=== PATIENT | female | born 1955 | race Caucasian/White ===

== ENCOUNTER 2016-12-10 19:55 | Emergency (ER) | payer BC, OTHER ==
[~2016-12-10] VITALS: Ht 152.4 cm; Wt 97.1 kg
[~2016-12-10 19:55] MED LIST: depression med
[2016-12-10 20:09] VITALS: BP 142/80
[2016-12-10] MEDS ORDERED: CYCL10TA2 PO (21:57)
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
--- NOTE | 2016-12-11 09:14 | RAD ---
Examination: 3 views of the cervical spine History: History of pain Comparison: None available. Findings: The vertebral body heights are maintained. There is mild to moderate intervertebral disc height loss identified at C5-C6, C6-C7 vertebral levels. The facets are well aligned. No evidence of prevertebral soft tissue swelling identified. The lateral masses of C1 are aligned with C2 vertebra. The C2 dens appears intact. Impression: 1. Mild to moderate degenerative changes cervical spine.
== END 2016-12-10 22:05 | disposition home or self-care (01) ==
LOC: ER 19:55
DX: S13.4XXA Sprain of ligaments of cervical spine, initial encounter (principal); I10 Essential (primary) hypertension; F41.9 Anxiety disorder, unspecified; V46.4XXA Person boarding or alighting a car injured in collision with other nonmotor vehicle, initial encounter; Y93.89 Activity, other specified; Y99.8 Other external cause status; Y92.488 Other paved roadways as the place of occurrence of the external cause
CPT/HCPCS: 72040; 99284

== ENCOUNTER → 2017-02-17 | Outpatient (CLI) | payer OTHER, BC ==
[~2017-02-17] MED LIST changes: +CYCL10TA2 PO
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
== END ==
LOC: MRI 15:32
PROVIDERS: ATTEND Family Medicine
DX: M50.322 Other cervical disc degeneration at C5-C6 level (principal); M48.02 Spinal stenosis, cervical region
CPT/HCPCS: 72141

== ENCOUNTER → 2017-04-12 | Outpatient (CLI) | payer OTHER, BC ==
[~2017-04-12] MED LIST changes: +CITA40TA5 PO; +CLON0.5T3 PO; +IOHEXOL 180 MG/ML 10 ML VIAL. ONE; +LISI-338 PO; +methylPREDNISolone ACETATE 40 MG/ML VIAL. ONE; +methylPREDNISolone ACETATE 80 MG/ML VIAL. ONE
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
== END | disposition home or self-care (01) ==
LOC: PNCL 07:43
PROVIDERS: ATTEND Anesthesiology
DX: M50.123 Cervical disc disorder at C6-C7 level with radiculopathy (principal); M48.02 Spinal stenosis, cervical region; M19.91 Primary osteoarthritis, unspecified site; F32.9 Major depressive disorder, single episode, unspecified; I10 Essential (primary) hypertension; Z72.89 Other problems related to lifestyle
CPT/HCPCS: 62321; J1030; J1040

== ENCOUNTER → 2017-04-27 | Outpatient (CLI) | payer OTHER, BC ==
--- NOTE | 2017-04-27 22:52 | PAIN ---
DATE OF SERVICE: 04/27/2017 DIAGNOSIS: Cervical radiculopathy with cervical spinal stenosis and cervical degenerative disk disease. HISTORY OF PRESENT ILLNESS: The patient is a 61-year-old female who returns for followup status post cervical epidural steroid injection x 1. The patient reports about 70% improvement in her neck and right upper extremity, although still has some pain that radiating into right upper extremity and the base of the neck on the right side ____ improved significantly. She still has significant pain, aching, sharp, tingling, radiating; now is off and on, is not constant as it was previously. Rates a 9 on a scale of 10 at its worst, average 8 and is currently a 7 on a scale of 10, which is its least. The patient reports it awakens her from sleep still, but she sleeps about 6 hours a night. She can reposition gently and get back to sleep fairly quickly. The patient reports no new motor or sensory deficits. No new bowel or bladder incontinence or other complaints. PHYSICAL EXAMINATION: VITAL SIGNS: Today, the patient's blood pressure is 133/88, pulse 79, respirations 18, temperature is 98.4 degrees Fahrenheit. Height is 5 feet, weighs 212 pounds. GENERAL: The patient is awake, alert, oriented, appropriate, is a very pleasant demeanor. HEENT: Head shows normocephalic, atraumatic. Extraocular movements are intact and symmetrical. Oral cavity shows mucous membranes moist and pink. Dentition is intact. NECK: Shows anterior throat supple without palpable lymphadenopathy noted. Swallow reflex is symmetrical. CHEST: Shows normal on inspection. Breath sounds are clear to auscultation bilaterally. HEART: Shows S1 and S2 clear. ABDOMEN: Obese, soft, nontender, nondistended MUSCULOSKELETAL: Back shows spine grossly in the midline. Slight increase in the thoracic kyphosis, normal cervical lordotic curvature. Cervical paraspinous muscle shows symmetrical on inspection, with palpation shows some moderate tenderness, only diffusely in the low cervical distribution in the paraspinous musculature, right and left essentially equal. The patient's upper extremities show deep tendon reflexes at 2+ in the biceps and triceps tendons. Motor exam is positive 4 on a scale of 5 on the right towel stretcher and 5/5 on the left towel stretcher strength. Biceps and triceps flexion is 5/5 and equal. PLAN: Options were discussed with the patient and the patient's old chart was reviewed as her current medication regimen and updated. Current review of systems updated today as well. We will proceed with a cervical epidural steroid injection that is a second in the series. Risks were again discussed including, but not limited to bleeding, infection, possibility of epidural hematoma and subsequent neurologic compromise, dural puncture, headaches, spinal cord and/or nerve damage, side effects of steroid medication and poor results regarding pain control. The patient understands and wishes to proceed. The patient will return to clinic in approximately 2 weeks for followup, was counseled on return appointment, activity level and side effects to be aware of. DIAGNOSIS: Cervical radiculopathy with cervical spinal stenosis, cervical degenerative disk disease. PROCEDURE: Cervical epidural steroid injection, translaminar approach, at the C6-C7 level using C-arm fluoroscopic guidance after sterile prep and drape using local anesthetic. MEDICATIONS INJECTED: A total of 120 mg Depo-Medrol plus 5 mL preservative-free normal saline and 2 mL of Isovue for contrast. CONDITION AT DISCHARGE: Stable. The patient tolerated procedure well, had no complications. KOURTNEY WILD MD DR: MARCUS/jonathon JOB#: [id number] / [id number]
== END | disposition home or self-care (01) ==
LOC: PNCL 07:33
PROVIDERS: ATTEND Anesthesiology
DX: M50.123 Cervical disc disorder at C6-C7 level with radiculopathy (principal); M48.02 Spinal stenosis, cervical region; F32.9 Major depressive disorder, single episode, unspecified; Z98.890 Other specified postprocedural states
CPT/HCPCS: 62321; J1030; J1040

== ENCOUNTER → 2017-07-12 | Outpatient (CLI) | payer BC ==
[~2017-07-12] MED LIST changes: -IOHEXOL 180 MG/ML 10 ML VIAL. ONE; -methylPREDNISolone ACETATE 40 MG/ML VIAL. ONE; -methylPREDNISolone ACETATE 80 MG/ML VIAL. ONE
--- NOTE | 2017-07-12 15:07 | RAD ---
DATE: July 12, 2017 EXAM: DIGITAL SCREEN BILAT W/CAD HISTORY: Routine screening. COMPARISON: Multiple prior studies back to June 19, 2015 TECHNIQUE: 2D digital CC and MLO views of each breast were obtained. This study was interpreted with the benefit of Computerized Aided Detection (CAD). FINDINGS: The breast parenchyma is heterogeneously dense, category C, which may obscure small masses. There is no worrisome mass or area of architectural distortion. There are benign appearing calcifications bilaterally. Clip is noted on the right. Results of that biopsy are reported to be benign. IMPRESSION: Benign findings. BI-RADS CATEGORY: 2 BENIGN FINDING RECOMMENDED FOLLOW-UP: 12M 12 MONTH FOLLOW-UP PQRS compliance statement: Patient information was entered into a reminder system with a target due date for the next mammogram. Mammography is a sensitive method for finding small breast cancers, but it does not detect them all and is not a substitute for careful clinical examination. A negative mammogram does not negate a clinically suspicious finding and should not result in delay in biopsying a clinically suspicious abnormality. "Our facility is accredited by the [employer] Mammography Program."
== END | disposition home or self-care (01) ==
LOC: MAMMO 13:35
PROVIDERS: ATTEND Family Medicine
DX: Z12.31 Encounter for screening mammogram for malignant neoplasm of breast (principal)
CPT/HCPCS: G0202; 77067

== ENCOUNTER 2017-10-19 11:57 | Emergency (ER) | payer BC ==
[2017-10-19 12:36] LABS: ADD MAN DIFF? NO
[2017-10-19 12:42] LABS: BASO % 1 % (0-3); EOS # 0.3 x10^3/uL (0.0-0.7); EOS % 4 % (0-3); HEMOGLOBIN 13.4 g/dL (12.0-15.5); LYMPH # 2.6 x10^3/uL (1.0-4.8); LYMPH % 29 % (24-48); MEAN CORPUSCULAR HEMOGLOBIN 31 pg (25-35); MEAN CORPUSCULAR HGB CONC 34 g/dL (31-37); MEAN CORPUSCULAR VOLUME 91 fL (79-100); MONO # 0.5 x10^3/uL (0.0-1.1); MONO % 6 % (0-9); NEUT # 5.3 x10^3uL (1.8-7.7); NEUT % 60 % (31-73); PLATELET COUNT 290 x10^3/uL (140-400); RED BLOOD COUNT 4.39 x10^6/uL (3.50-5.40); RED CELL DISTRIBUTION WIDTH 13.3 % (11.5-14.5); WHITE BLOOD COUNT 8.8 x10^3/uL (4.0-11.0)
[2017-10-19 12:49] LABS: ANION GAP 9 (6-14); BLOOD UREA NITROGEN 16 mg/dL (7-20); BUN/CREATININE RATIO 23 (6-20); CALCIUM 8.9 mg/dL (8.5-10.1); CARBON DIOXIDE 27 mmol/L (21-32); CHLORIDE 106 mmol/L (98-107); CREATININE 0.7 mg/dL (0.6-1.0); GFR 85.1; GLUCOSE 110 mg/dL (70-99); SODIUM 142 mmol/L (136-145)
[2017-10-19 12:53] LABS: PARTIAL THROMBOPLASTIN TIME 31 SEC (24-38); PROTHROMBIN TIME PATIENT 12.5 SEC (11.7-14.0)
[2017-10-19 12:56] LABS: ALBUMIN 3.7 g/dL (3.4-5.0); ALK PHOS 96 U/L (46-116); ALT (SGPT) 32 U/L (14-59); AST (SGOT) 22 U/L (15-37); MAGNESIUM 1.7 mg/dL (1.8-2.4); TOTAL BILIRUBIN 0.3 mg/dL (0.2-1.0); TOTAL PROTEIN 7.3 g/dL (6.4-8.2)
[2017-10-19] MEDS: IV NORMAL SALINE 1000ML BAG 1,000 ML IV (12:56)
[2017-10-19] MEDS: diphenhydrAMINE 50 MG/ML VIAL IVP (12:57)
[2017-10-19] MEDS: PROCHLORPERAZINE 10 MG/2 ML VIAL. IV (12:58)
[2017-10-19] MEDS: fentaNYL PF VIAL 100 MCG/2 ML VIAL IV (13:02)
[2017-10-19] MEDS: KETOROLAC 30 MG/ML INJ. IV (14:33)
[2017-10-19 14:57] LABS: BILIRUBIN,URINE NEGATIVE (NEG); CLARITY,URINE CLEAR; COLOR,URINE YELLOW; GLUCOSE,URINE NEGATIVE (NEG); NITRITE,URINE NEGATIVE (NEG); PH,URINE 6.5; PROTEIN,URINE NEGATIVE (NEG-TRACE)
[2017-10-19 15:19] LABS: RBC,URINE RARE /HPF (0-2); SQUAMOUS EPITHELIAL CELL,UR FEW /LPF
[2017-10-19 15:20] LABS: BACTERIA,URINE FEW /HPF (0-FEW)
== END 2017-10-19 16:10 | disposition home or self-care (01) ==
LOC: ER 16:10
DX: M54.12 Radiculopathy, cervical region (principal); M62.838 Other muscle spasm; R51 Headache; F41.9 Anxiety disorder, unspecified; I10 Essential (primary) hypertension
CPT/HCPCS: 36415; 70450; 72125; 80053; 81001; 83735; 85025; 85610; 85730; 87086; 96361; 96374; 96375; 99285-25; J0780; J1200; J1885; J3010; J7030

== ENCOUNTER → 2018-04-04 | Outpatient (CLI) | payer BC ==
[2017-10-19 15:30] VITALS: BP 140/70
[~2018-04-04] MED LIST changes: +CLON0.5T11 PO; -CLON0.5T3 PO; +METH4TAB2 PO
--- NOTE | 2018-04-04 16:01 | RAD ---
Five view lumbar spine series: Clinical indications: Low back pain for 3 days. Left-sided sciatica. Findings: No fracture of the transverse processes is seen.No compression fracture is evident.No spondylolisthesis is seen.No discitis or osteolytic process is seen.No radiolucent pars defect is seen.No significant facet arthropathy is seen. There is mild degenerative endplate spurring throughout the lumbar spine without disc space narrowing. Impression: Mild degenerative lumbar spondylosis. Electronically signed by: Brennen Krause MD (04/04/2018 3:58 PM) [facility]
== END | disposition home or self-care (01) ==
LOC: RAD 10:23
PROVIDERS: ATTEND Family Medicine
DX: M47.896 Other spondylosis, lumbar region (principal); M46.06 Spinal enthesopathy, lumbar region; I10 Essential (primary) hypertension
CPT/HCPCS: 72110

== ENCOUNTER → 2018-06-19 | Outpatient (CLI) | payer BC ==
[2017-10-19 15:30] VITALS: BP 140/70
--- NOTE | 2018-06-19 08:47 | RAD ---
Left knee, 3 views, 06/19/2018: HISTORY: Lateral knee pain No fracture or dislocation is identified. There is only minimal arthritic change at the patellofemoral articulation. No joint effusion is evident. IMPRESSION: No acute left knee abnormality is detected. Electronically signed by: José Miguel Gamboa MD (06/19/2018 8:44 AM) [facility]
== END | disposition home or self-care (01) ==
LOC: RAD 07:14
PROVIDERS: ATTEND Family Medicine
DX: M25.562 Pain in left knee (principal)
CPT/HCPCS: 73562

== ENCOUNTER → 2018-07-19 | Outpatient (CLI) | payer BC ==
[2017-10-19 15:30] VITALS: BP 140/70
--- NOTE | 2018-07-19 10:08 | RAD ---
DATE: 07/19/2018 10:30 AM EXAM: MAMMO KYLER SCREENING BILATERAL HISTORY: routine screening evaluation. COMPARISON: Prior mammographic imaging dating back to 02/27/2009 Bilateral CC and MLO views of the breasts were performed. Bilateral breast tomosynthesis was performed in CC and MLO projections. This study was interpreted with the benefit of Computerized Aided Detection (CAD ). Breast Density: The breast parenchyma is heterogeneously dense, which could reduce sensitivity of mammography. Breast parenchyma level C. FINDINGS: Benign calcifications are present. A well-circumscribed masses seen within the medial left breast at approximately 9:00 position approximately 4 cm the nipple. No suspicious masses, microcalcifications or architectural distortion is present to suggest malignancy in the right breast. The visualized axillae are unremarkable. IMPRESSION: Left breast mass, findings for which additional imaging is advised. BI-RADS CATEGORY: 2 BENIGN FINDING(S) RECOMMENDED FOLLOW-UP: ADD ADDITIONAL IMAGING. Further imaging with indicated left breast ultrasound is recommended. PQRS compliance statement: Patient information was entered into a reminder system with a target due date -immediate recall for the next mammogram. Mammography is a sensitive method for finding small breast cancers, but it does not detect them all and is not a substitute for careful clinical examination. A negative mammogram does not negate a clinically suspicious finding and should not result in delay in biopsying a clinically suspicious abnormality. "Our facility is accredited by the [employer] Mammography Program." MTDD
--- NOTE | 2018-07-19 13:35 | RAD ---
DATE: 07/19/2018 12:30 PM EXAM: BREAST LEFT HISTORY: further evaluation of a finding noted on her most recent screening mammographic examination. On that examination a mass was reported within the right COMPARISON: Prior mammographic imaging dating back to 02/27/2009 including mammogram from 07/19/2018 ULTRASOUND TECHNIQUE: Targeted grayscale and color Doppler sonographic evaluation of the left breast was performed. ULTRASOUND FINDINGS: Targeted ultrasound of the mammographic area of concern was performed. 9:00 position, 4 cm from the nipple: An anechoic avascular mass of circumscribed margins and round/oval shape is present. It demonstrates posterior acoustic enhancement and a parallel orientation. It measures 1.6 x 1 x 1.7 cm 9:00 position, 4 cm from the nipple: An anechoic avascular mass of circumscribed margins and round/oval shape is present. It demonstrates posterior acoustic enhancement and a parallel orientation. It measures 0.6 x 0.5 x 0.8 cm 9:30 position, 3 cm from the nipple: A near anechoic mass with slightly irregular margins is seen, predominantly anechoic, with minimal internal homogeneous low level echoes is present with parallel orientation and is of oval/round shape. There is no internal vascularity on Doppler interrogation. No obvious posterior acoustic enhancement is seen. This measures 0.9 x 0.6 x 0.4 cm. IMPRESSION: The findings seen on prior mammogram correlated with a simple cyst. Left breast, likely complex cyst, findings for which additional imaging is advised. BI-RADS CATEGORY: 3 PROBABLY BENIGN FINDING(S)-SHORT INTERVAL FOLLOW-UP SUGGESTED RECOMMENDED FOLLOW-UP: 6M 6 MONTH FOLLOW-UP. Six-month follow-up left breast ultrasound is recommended. PQRS compliance statement: Patient information was entered into a reminder system with a target due date 01/17/2019 for the follow-up breast imaging to include ultrasound. Mammography is a sensitive method for finding small breast cancers, but it does not detect them all and is not a substitute for careful clinical examination. A negative mammogram does not negate a clinically suspicious finding and should not result in delay in biopsying a clinically suspicious abnormality. "Our facility is accredited by the [employer] Mammography Program."
== END | disposition home or self-care (01) ==
LOC: MAMMO 08:18
PROVIDERS: ATTEND Family Medicine
DX: Z12.31 Encounter for screening mammogram for malignant neoplasm of breast (principal); R92.8 Other abnormal and inconclusive findings on diagnostic imaging of breast
CPT/HCPCS: 76641; 77063; 77067

== ENCOUNTER 2018-12-24 09:08 | Emergency (ER) | payer BC ==
[~2018-12-24] VITALS: Ht 152.4 cm; Wt 100.2 kg
[2018-12-24 09:44] LABS: BASO # 0.1 x10^3/uL (0.0-0.2); BASO % 1 % (0-3); EOS # 0.3 x10^3/uL (0.0-0.7); EOS % 2 % (0-3); HEMATOCRIT 40.1 % (36.0-47.0); LYMPH # 4.1 x10^3/uL (1.0-4.8); LYMPH % 26 % (24-48); MEAN CORPUSCULAR HEMOGLOBIN 30 pg (25-35); MEAN CORPUSCULAR HGB CONC 32 g/dL (31-37); MEAN CORPUSCULAR VOLUME 92 fL (79-100); MONO # 0.7 x10^3/uL (0.0-1.1); MONO % 4 % (0-9); NEUT # 10.5 x10^3uL (1.8-7.7); NEUT % 67 % (31-73); PLATELET COUNT 295 x10^3/uL (140-400); RED BLOOD COUNT 4.37 x10^6/uL (3.50-5.40); RED CELL DISTRIBUTION WIDTH 13.8 % (11.5-14.5); WHITE BLOOD COUNT 15.7 x10^3/uL (4.0-11.0)
[2018-12-24 09:53] LABS: CREATININE 0.9 mg/dL (0.6-1.0); GFR 63.4; POTASSIUM 3.8 mmol/L (3.5-5.1)
--- NOTE | 2018-12-24 09:58 | RAD ---
PORTABLE CHEST 1V History: Dizziness Comparison: 09/08/2004 Findings: Single view of the chest is submitted. There is suboptimal inspiration. There is no dependent pleural fluid or pneumothorax. Heart size is fairly similar allowing for differences in degree of inspiration. There is mild right base airspace opacity. Impression: 1. There is suboptimal inspiration. There is mild medial right base opacity which may be due to mild atelectasis although infiltrate difficult to entirely exclude. Electronically signed by: Christ Arana MD (12/24/2018 9:56 AM) [facility]
[2018-12-24 09:59] LABS: ALBUMIN 3.8 g/dL (3.4-5.0); ALBUMIN/GLOBULIN RATIO 1.3 (1.0-1.7); MAGNESIUM 1.9 mg/dL (1.8-2.4); TOTAL BILIRUBIN 0.4 mg/dL (0.2-1.0); TOTAL PROTEIN 6.8 g/dL (6.4-8.2)
[2018-12-24 10:00] LABS: BILIRUBIN,URINE SMALL (NEG); CLARITY,URINE CLOUDY; COLOR,URINE YELLOW; NITRITE,URINE NEGATIVE (NEG); PROTEIN,URINE NEGATIVE (NEG-TRACE); UROBILINOGEN,URINE 0.2 mg/dL (0.2 mg/dL)
[2018-12-24 10:13] LABS: BACTERIA,URINE MANY /HPF (0-FEW); SQUAMOUS EPITHELIAL CELL,UR MANY /LPF; WBC,URINE >40 /HPF (0-4)
--- NOTE | 2018-12-24 10:23 | RAD ---
CT HEAD WO CONTRAST Clinical indications: Dizziness. COMPARISON: October 19, 2017. Technique: Noncontrast axial cross sectional scanning of the head was performed. PQRS compliance Statement One or more of the following individualized dose reduction techniques were utilized for this study: 1. Automated exposure control 2. Adjustment of the mA and/or kV according to patient size 3. Use of iterative reconstruction technique Findings: No acute intracranial hemorrhage or midline shift or mass-effect or hydrocephalus or extra-axial fluid collection is seen. No focal hypodense area or sulci effacement is seen to indicate an acute infarct or edema radiographically. No skull fracture or pneumocephalus is seen. No opacification of the mastoid sinuses or the middle ear cavities or the paranasal sinuses is seen. The maxillary sinuses are not completely seen in this study. Impression: No acute intracranial abnormality is seen. Electronically signed by: Brennen Krause MD (12/24/2018 10:20 AM) [facility]
--- NOTE | 2018-12-24 10:27 | PHYS DOC ---
Past Medical History Past Medical History: Anxiety, High Cholesterol, Hypertension Past Surgical History: , Tonsillectomy, Other Additional Past Surgical Histo: right foot Alcohol Use: None Drug Use: None Adult General Chief Complaint Chief Complaint: DIZZY/LIGHT HEADED HPI HPI Patient is a 63 year old female who presents with complaining of almost passing out. Patient complaining of intermittent episodes of near-syncope for the last 5 days that usually happens with change of position. Patient states she had fluid in her ear and treated with prednisone but was not able to take prednisone because of side effects of jittering. Patient states she was seen by her primary care physician 3 days ago and was told to start prednisone but she could not find her medication. Patient states while she was driving to the hospital she felt maybe she passed out and cannot make to the hospital. Patient denies headache, focal neuro deficit, blurred vision, nausea and vomiting, chest pain and shortness of breath, change of hearing, recent URI symptoms, history of the same problem. Review of Systems Review of Systems Constitutional: Denies fever or chills [] Eyes: Denies change in visual acuity, redness, or eye pain [] HENT: Denies nasal congestion or sore throat [] Respiratory: Denies cough or shortness of breath [] Cardiovascular: No additional information not addressed in HPI [] GI: Denies abdominal pain, nausea, vomiting, bloody stools or diarrhea [] : Denies dysuria or hematuria [] Musculoskeletal: Denies back pain or joint pain [] Integument: Denies rash or skin lesions [] Neurologic: Denies headache, focal weakness or sensory changes, reports dizziness[] Endocrine: Denies polyuria or polydipsia [] All other systems were reviewed and found to be within normal limits, except as documented in this note. Current Medications Current Medications Current Medications Medications (Trade) Dose Ordered Sig/Rommel Start Time Stop Time Status Last Admin Dose Admin Ceftriaxone Sodium (Rocephin) 1 gm 1X ONCE 12/24/18 11:15 12/24/18 11:16 DC 12/24/18 12:17 1 GM Lorazepam (Ativan Inj) 1 mg 1X ONCE 12/24/18 09:30 12/24/18 09:33 DC 12/24/18 09:51 1 MG Sodium Chloride 1,000 ml @ 1,000 mls/hr 1X ONCE 12/24/18 11:15 12/24/18 12:14 DC 12/24/18 12:16 1,000 MLS/HR Allergies Allergies Allergies Coded Allergies Type Severity Reaction Last Updated Verified No Known Drug Allergies 07/09/15 No Physical Exam Physical Exam Constitutional: Well developed, well nourished, mild distress, non-toxic appearance, anxious. [] HENT: Normocephalic, atraumatic, bilateral external ears normal, oropharynx dry, no oral exudates, nose normal. [] Eyes: PERRLA, EOMI, conjunctiva normal, no discharge. [] Neck: Normal range of motion, no tenderness, supple, no stridor. [] Cardiovascular:Heart rate regular rhythm, no murmur [] Lungs & Thorax: Bilateral breath sounds clear to auscultation [] Abdomen: Bowel sounds normal, soft, no tenderness, no masses, no pulsatile masses. [] Skin: Warm, dry, no erythema, no rash. [] Back: No tenderness, no CVA tenderness. [] Extremities: No tenderness, no cyanosis, no clubbing, ROM intact, no edema. [] Neurologic: Alert and oriented X 3, normal motor function, normal sensory function, no focal deficits noted. [] Psychologic: Affect anxious, judgement normal, mood normal. [] Current Patient Data Vital Signs Vital Signs Date Time Temp Pulse Resp B/P (MAP) Pulse Ox O2 Delivery O2 Flow Rate FiO2 12/24/18 13:15 78 16 100 12/24/18 09:15 98.6 137/65 (89) Room Air 98.6 Lab Values Laboratory Tests Test 12/24/18 08:47 12/24/18 09:21 12/24/18 09:33 12/24/18 11:45 Urine Collection Type Unknown Urine Color Yellow Urine Clarity Cloudy Urine pH 6.0 Urine Specific [place] >=1.030 Urine Protein Negative mg/dL (NEG-TRACE) Urine Glucose (UA) Negative mg/dL (NEG) Urine Ketones (Stick) Trace mg/dL (NEG) Urine Blood Small (NEG) Urine Nitrite Negative (NEG) Urine Bilirubin Small (NEG) Urine Urobilinogen Dipstick 0.2 mg/dL (0.2 mg/dL) Urine Leukocyte Esterase Large (NEG) Urine RBC 3-5 /HPF (0-2) Urine WBC >40 /HPF (0-4) Urine Squamous Epithelial Cells Many /LPF Urine Bacteria Many /HPF (0-FEW) Urine Mucus Marked /LPF Glucose (Fingerstick) 94 mg/dL (70-99) White Blood Count 15.7 x10^3/uL (4.0-11.0) H Red Blood Count 4.37 x10^6/uL (3.50-5.40) Hemoglobin 13.0 g/dL (12.0-15.5) Hematocrit 40.1 % (36.0-47.0) Mean Corpuscular Volume 92 fL (79-100) Mean Corpuscular Hemoglobin 30 pg (25-35) Mean Corpuscular Hemoglobin Concent 32 g/dL (31-37) Red Cell Distribution Width 13.8 % (11.5-14.5) Platelet Count 295 x10^3/uL (140-400) Neutrophils (%) (Auto) 67 % (31-73) Lymphocytes (%) (Auto) 26 % (24-48) Monocytes (%) (Auto) 4 % (0-9) Eosinophils (%) (Auto) 2 % (0-3) Basophils (%) (Auto) 1 % (0-3) Neutrophils # (Auto) 10.5 x10^3uL (1.8-7.7) H Lymphocytes # (Auto) 4.1 x10^3/uL (1.0-4.8) Monocytes # (Auto) 0.7 x10^3/uL (0.0-1.1) Eosinophils # (Auto) 0.3 x10^3/uL (0.0-0.7) Basophils # (Auto) 0.1 x10^3/uL (0.0-0.2) Sodium Level 142 mmol/L (136-145) Potassium Level 3.8 mmol/L (3.5-5.1) Chloride Level 106 mmol/L (98-107) Carbon Dioxide Level 24 mmol/L (21-32) Anion Gap 12 (6-14) Blood Urea Nitrogen 33 mg/dL (7-20) H Creatinine 0.9 mg/dL (0.6-1.0) Estimated GFR (Cockcroft-Gault) 63.4 BUN/Creatinine Ratio 37 (6-20) H Glucose Level 100 mg/dL (70-99) H Calcium Level 9.0 mg/dL (8.5-10.1) Magnesium Level 1.9 mg/dL (1.8-2.4) Total Bilirubin 0.4 mg/dL (0.2-1.0) Aspartate Amino Transferase (AST) 15 U/L (15-37) Alanine Aminotransferase (ALT) 31 U/L (14-59) Alkaline Phosphatase 78 U/L (46-116) Creatine Kinase 70 U/L (26-192) Troponin I Quantitative < 0.017 ng/mL (0.000-0.055) Total Protein 6.8 g/dL (6.4-8.2) Albumin 3.8 g/dL (3.4-5.0) Albumin/Globulin Ratio 1.3 (1.0-1.7) Lactic Acid Level 1.0 mmol/L (0.4-2.0) Laboratory Tests 12/24/18 09:33 Laboratory Tests 12/24/18 09:33 EKG EKG EKG interpreted by me. EKG at 0919 showed normal sinus rhythm at rate of 85, left sanchez axis, normal MD and QT intervals, no acute ST and T-wave abnormalities. Radiology/Procedures Radiology/Procedures [facility] [address] [place] [address] IMAGING REPORT Signed PATIENT: BETSY MATTHEWS ACCOUNT: [id number] : 1955 LOCATION: ER AGE: 63 SEX: F EXAM STATUS: PRE ER ORD. PHYSICIAN: ROSA MCDONALD MD REASON: dizziness PROCEDURE: PORTABLE CHEST 1V PORTABLE CHEST 1V History: Dizziness Comparison: 09/08/2004 Findings: Single view of the chest is submitted. There is suboptimal inspiration. There is no dependent pleural fluid or pneumothorax. Heart size is fairly similar allowing for differences in degree of inspiration. There is mild right base airspace opacity. Impression: 1. There is suboptimal inspiration. There is mild medial right base opacity which may be due to mild atelectasis although infiltrate difficult to entirely exclude. Electronically signed by: Sony Sandoval MD (12/24/2018 9:56 AM) [facility] DICTATED and SIGNED BY: SONY SANDOVAL MD DATE: 12/24/18 0956 [facility] [address] [place] [address] IMAGING REPORT Signed PATIENT: BETSY MATTHEWS ACCOUNT: [id number] : 1955 LOCATION: ER AGE: 63 SEX: F EXAM STATUS: REG ER ORD. PHYSICIAN: ROSA MCDONALD MD REASON: dizziness PROCEDURE: CT HEAD WO CONTRAST CT HEAD WO CONTRAST Clinical indications: Dizziness. COMPARISON: October 19, 2017. Technique: Noncontrast axial cross sectional scanning of the head was performed. PQRS compliance Statement One or more of the following individualized dose reduction techniques were utilized for this study: 1. Automated exposure control 2. Adjustment of the mA and/or kV according to patient size 3. Use of iterative reconstruction technique Findings: No acute intracranial hemorrhage or midline shift or mass-effect or hydrocephalus or extra-axial fluid collection is seen. No focal hypodense area or sulci effacement is seen to indicate an acute infarct or edema radiographically. No skull fracture or pneumocephalus is seen. No opacification of the mastoid sinuses or the middle ear cavities or the paranasal sinuses is seen. The maxillary sinuses are not completely seen in this study. Impression: No acute intracranial abnormality is seen. Electronically signed by: Kayla Krause MD (12/24/2018 10:20 AM) [facility] DICTATED and SIGNED BY: KAYLA KRAUSE MD DATE: 12/24/18 1020 Course & Med Decision Making Course & Med Decision Making Pertinent Labs and Imaging studies reviewed. (See chart for details) Evaluation of patient in ER showed 63-year-old male patient presented to ER with complaining of not feeling good and near syncopal episode. Patient was very anxious at arrival to ER. Patient treated with Ativan with improvement of her anxiety. Patient had leukocytosis without elevation of lactic acid. Patient had UTI and treated with IV fluid and Rocephin and felt better and she feels to go home on oral antibiotic. Dragon Disclaimer Dragon Disclaimer This electronic medical record was generated, in whole or in part, using a voice recognition dictation system. Departure Departure Impression: Primary Impression: Urinary tract infection Additional Impressions: Dizziness Anxiety Disposition: HOME, SELF-CARE (at 1315) Condition: IMPROVED Referrals: Aneesh FREEDMAN MD (PCP) Patient Instructions: Dizziness, Urinary Tract Infection Additional Instructions: Drink plenty of liquids Follow-up with your primary care physician in 3-5 days Return to ER if not getting better Scripts Sulfamethoxazole/Trimethoprim (BACTRIM DS TABLET) 1 Each Tablet 1 TAB PO BID for infection, #14 TAB Prov: ROSA MCDONALD MD 12/24/18 Problem Qualifiers Primary Impression: Urinary tract infection Urinary tract infection type: acute cystitis Hematuria presence: without hematuria Qualified Codes: N30.00 - Acute cystitis without hematuria ROSA MCDONALD MD December 24, 2018 10:27
[2018-12-24] MEDS ORDERED: IV NORMAL SALINE 1000ML BAG 1,000 ML IV ONE (11:15)
[2018-12-24] MEDS ORDERED: cefTRIAXone IV Push 1 GM VIAL. IVP ONE (11:15)
--- NOTE | 2018-12-24 11:28 | EKG ---
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
[2018-12-24 13:15] VITALS: BP 135/74
[2018-12-24] MEDS ORDERED: SULF1TAB24 PO (13:16)
[2018-12-28] MEDS ORDERED: FLUT9.9S NS (09:39)
== END 2018-12-24 13:29 | disposition home or self-care (01) ==
LOC: ER 09:08
DX: N30.00 Acute cystitis without hematuria (principal); R55 Syncope and collapse; F41.9 Anxiety disorder, unspecified; E78.00 Pure hypercholesterolemia, unspecified; I10 Essential (primary) hypertension; Z98.890 Other specified postprocedural states; Z90.89 Acquired absence of other organs
CPT/HCPCS: 36415; 70450; 71045; 80053; 81001; 82550; 82962; 83605; 83735; 84484; 85025; 87040; 87086; 93005; 96361; 96374; 96375; 99285; J0696; J2060; J7030

== ENCOUNTER 2018-12-26 13:01 | Inpatient (IN) | payer BC ==
[~2018-12-26] VITALS: Ht 152.4 cm; Wt 102.7 kg
[~2018-12-26 13:01] MED LIST changes: +SULF1TAB24 PO
[2018-12-26] MEDS ORDERED: IBUPROFEN 400 MG TABLET. PO ONE (13:30)
[2018-12-26] MEDS ORDERED: ACETAMINOPHEN 500 MG TABLET PO ONE (13:30)
[2018-12-26] MEDS ORDERED: IV NORMAL SALINE 1000ML BAG 1,000 ML IV ONE ×3 (13:30→14:45)
--- NOTE | 2018-12-26 13:31 | PHYS DOC ---
Past Medical History Past Medical History: Anxiety, High Cholesterol, Hypertension Past Surgical History: , Tonsillectomy, Other Additional Past Surgical Histo: right foot Additional Information: non smoker Alcohol Use: None Drug Use: None Adult General Chief Complaint Chief Complaint: DIZZY/LIGHT HEADED [facility] HPI Patient is a 63 year old female who presents with dizziness has been ongoing since last Tuesday. She did symptoms include shortness of breath that started later on in the week. Is also having ear fullness states she has been achy. Seen in this ER on December 24 the UTI and sent home for outpatient antibiotic therapy. Dizziness has not improved since states is getting worse. Rates her pain 6 out of 10 and achy. States that she has been taking her Bactrim as prescribed with no other interventions at home. Review of Systems Review of Systems Constitutional: Reports fever or chills [] Eyes: Denies change in visual acuity, redness, or eye pain [] HENT: Denies nasal congestion or sore throat [] Respiratory: Denies cough but reports shortness of breath [] Cardiovascular: No additional information not addressed in HPI [] GI: Denies abdominal pain, nausea, vomiting, bloody stools or diarrhea [] : Denies dysuria or hematuria [] Musculoskeletal: Denies back pain or joint pain [] Integument: Denies rash or skin lesions [] Neurologic: Reports Dizziness. Denies headache, focal weakness or sensory changes [] Endocrine: Denies polyuria or polydipsia [] Complete systems were reviewed and found to be within normal limits, except as documented in this note. Current Medications Current Medications Current Medications Medications (Trade) Dose Ordered Sig/Rommel Start Time Stop Time Status Last Admin Dose Admin Acetaminophen (Tylenol) 500 mg 1X ONCE 12/26/18 13:30 12/26/18 13:36 DC 12/26/18 14:18 500 MG Ceftriaxone Sodium (Rocephin) 1 gm 1X STAT 12/26/18 14:14 12/26/18 14:24 DC 12/26/18 14:31 1 GM Ibuprofen (Motrin) 600 mg 1X ONCE 12/26/18 13:30 12/26/18 13:36 DC 12/26/18 14:18 600 MG Sodium Chloride 1,000 ml @ 1,000 mls/hr 1X ONCE 12/26/18 14:45 12/26/18 15:44 Allergies Allergies Allergies Coded Allergies Type Severity Reaction Last Updated Verified No Known Drug Allergies 07/09/15 No Physical Exam Physical Exam Constitutional: Well developed, well nourished, no acute distress, non-toxic appearance. [] HENT: Normocephalic, atraumatic, bilateral external ears normal, oropharynx moist, no oral exudates, nose normal. [] Eyes: PERRLA, EOMI, conjunctiva normal, no discharge. [] Neck: Normal range of motion, no tenderness, supple, no stridor. [] Cardiovascular:Heart rate regular rhythm, no murmur [] Lungs & Thorax: Bilateral breath sounds clear to auscultation [] Abdomen: Bowel sounds normal, soft, no tenderness, no masses, no pulsatile masses. [] Skin: Warm, dry, no erythema, no rash. [] Back: No tenderness, no CVA tenderness. [] Extremities: No tenderness, no cyanosis, no clubbing, ROM intact, no edema. [] Neurologic: Alert and oriented X 3, normal motor function, normal sensory function, no focal deficits noted. [] Psychologic: Affect normal, judgement normal, mood normal. [] Current Patient Data Vital Signs Vital Signs Date Time Temp Pulse Resp B/P (MAP) Pulse Ox O2 Delivery O2 Flow Rate FiO2 12/26/18 13:51 98.1 90 20 143/67 (92) 96 Room Air 98.1 Lab Values Laboratory Tests Test 12/26/18 13:38 White Blood Count 18.5 x10^3/uL (4.0-11.0) H Red Blood Count 4.24 x10^6/uL (3.50-5.40) Hemoglobin 12.6 g/dL (12.0-15.5) Hematocrit 38.9 % (36.0-47.0) Mean Corpuscular Volume 92 fL (79-100) Mean Corpuscular Hemoglobin 30 pg (25-35) Mean Corpuscular Hemoglobin Concent 32 g/dL (31-37) Red Cell Distribution Width 14.1 % (11.5-14.5) Platelet Count 293 x10^3/uL (140-400) Neutrophils (%) (Auto) 93 % (31-73) H Lymphocytes (%) (Auto) 6 % (24-48) L Monocytes (%) (Auto) 1 % (0-9) Eosinophils (%) (Auto) 0 % (0-3) Basophils (%) (Auto) 0 % (0-3) Neutrophils # (Auto) 17.1 x10^3uL (1.8-7.7) H Lymphocytes # (Auto) 1.1 x10^3/uL (1.0-4.8) Monocytes # (Auto) 0.2 x10^3/uL (0.0-1.1) Eosinophils # (Auto) 0.0 x10^3/uL (0.0-0.7) Basophils # (Auto) 0.0 x10^3/uL (0.0-0.2) Segmented Neutrophils % 92 % (35-66) H Band Neutrophils % 2 % (0-9) Lymphocytes % 4 % (24-48) L Monocytes % 2 % (0-10) Platelet Estimate Adequate (ADEQUATE) Urine Collection Type Unknown Urine Color Yellow Urine Clarity Clear Urine pH 6.0 Urine Specific [place] 1.020 Urine Protein Negative mg/dL (NEG-TRACE) Urine Glucose (UA) 250 mg/dL (NEG) Urine Ketones (Stick) Negative mg/dL (NEG) Urine Blood Negative (NEG) Urine Nitrite Negative (NEG) Urine Bilirubin Negative (NEG) Urine Urobilinogen Dipstick 0.2 mg/dL (0.2 mg/dL) Urine Leukocyte Esterase Moderate (NEG) Urine RBC Rare /HPF (0-2) Urine WBC 11-20 /HPF (0-4) Urine Squamous Epithelial Cells Mod /LPF Urine Bacteria Moderate /HPF (0-FEW) Sodium Level 139 mmol/L (136-145) Potassium Level 4.3 mmol/L (3.5-5.1) Chloride Level 103 mmol/L (98-107) Carbon Dioxide Level 19 mmol/L (21-32) L Anion Gap 17 (6-14) H Blood Urea Nitrogen 25 mg/dL (7-20) H Creatinine 1.1 mg/dL (0.6-1.0) H Estimated GFR (Cockcroft-Gault) 50.3 BUN/Creatinine Ratio 23 (6-20) H Glucose Level 248 mg/dL (70-99) H Lactic Acid Level 3.0 mmol/L (0.4-2.0) H Calcium Level 9.1 mg/dL (8.5-10.1) Total Bilirubin 0.2 mg/dL (0.2-1.0) Aspartate Amino Transferase (AST) 14 U/L (15-37) L Alanine Aminotransferase (ALT) 29 U/L (14-59) Alkaline Phosphatase 92 U/L (46-116) Troponin I Quantitative < 0.017 ng/mL (0.000-0.055) GH-Jij-[id number]-Type Natriuretic Peptide 16 pg/mL (0-124) Total Protein 6.8 g/dL (6.4-8.2) Albumin 3.6 g/dL (3.4-5.0) Albumin/Globulin Ratio 1.1 (1.0-1.7) Laboratory Tests 12/26/18 13:38 Laboratory Tests 12/26/18 13:38 EKG EKG EKG interpreted by Dr. Hicks No STEMI. Sinus Rhythm with rate of 87.[] Radiology/Procedures Radiology/Procedures [] Course & Med Decision Making Course & Med Decision Making Pertinent Labs and Imaging studies reviewed. (See chart for details) Discussed symptoms with patient. Will reevaluate labs and get a further workup on patient to compare to 2 days ago. The patient is agreeable to this. Urine shows a UTI, WBC is worse then previous visit. Will admit to hospital. Patient is agreeable. Patient Lactic is elevated. Will order Rocephin, and 30 mL/kg fluids. Paged Dr. Freedman Talked to Dr. Freedman. He will admit to hospital. Dragon Disclaimer Dragon Disclaimer This electronic medical record was generated, in whole or in part, using a voice recognition dictation system. Departure Departure Impression: Primary Impression: Urinary tract infection Additional Impressions: Dizziness Sepsis Disposition: 09 ADMITTED INPATIENT Admitting Physician: Bal Freedman Condition: STABLE Referrals: Aneesh FREEDMAN MD (PCP) Date and Time of Reassessment Date: December 26, 2018 Time: 14:44 Fluid Challenge Is the fluid challenge complet: No IBW Target Volume Used: No BMI > 30: Yes Vital Signs Vital Signs: Vital Signs Date Time Temp Pulse Resp B/P (MAP) Pulse Ox O2 Delivery O2 Flow Rate FiO2 12/26/18 13:51 98.1 90 20 143/67 (92) 96 Room Air 98.1 Temperature Source: Oral Respirations Respiratory Effort: Non-Labored Respiratory Pattern: Normal Cardiovascular Pulse Rhythm: Regular Heart: Nml rate, reg. rhythm Lung Sounds Breath Sounds: Clear Capillary Refil Capillary Refill: Rt Hand < 3 seconds Peripheral Pulse Pulse Location: Monitor Pulse Strength: Normal (2+) Pulse Assessment Method: Monitor Integumentary Skin: Warm Skin Moisture: Dry Skin Turgor: Decreased Skin Color: warm Fingernail Color: WNL Problem Qualifiers Primary Impression: Urinary tract infection Urinary tract infection type: acute cystitis Hematuria presence: with hematuria Qualified Codes: N30.01 - Acute cystitis with hematuria Additional Impressions: Sepsis Sepsis type: sepsis due to unspecified organism Qualified Codes: A41.9 - Sepsis, unspecified organism JONES SKINNER APRN December 26, 2018 13:31
[2018-12-26 13:56] LABS: BASO % 0 % (0-3); EOS % 0 % (0-3); HEMATOCRIT 38.9 % (36.0-47.0); HEMOGLOBIN 12.6 g/dL (12.0-15.5); LYMPH # 1.1 x10^3/uL (1.0-4.8); LYMPH % 6 % (24-48); MEAN CORPUSCULAR HEMOGLOBIN 30 pg (25-35); MEAN CORPUSCULAR HGB CONC 32 g/dL (31-37); MEAN CORPUSCULAR VOLUME 92 fL (79-100); MONO # 0.2 x10^3/uL (0.0-1.1); MONO % 1 % (0-9); NEUT # 17.1 x10^3uL (1.8-7.7); NEUT % 93 % (31-73); PLATELET COUNT 293 x10^3/uL (140-400); RED BLOOD COUNT 4.24 x10^6/uL (3.50-5.40); RED CELL DISTRIBUTION WIDTH 14.1 % (11.5-14.5); WHITE BLOOD COUNT 18.5 x10^3/uL (4.0-11.0)
--- NOTE | 2018-12-26 13:58 | EKG ---
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
[2018-12-26 13:59] LABS: BILIRUBIN,URINE NEGATIVE (NEG); CLARITY,URINE CLEAR; COLOR,URINE YELLOW; NITRITE,URINE NEGATIVE (NEG); PROTEIN,URINE NEGATIVE (NEG-TRACE); UROBILINOGEN,URINE 0.2 mg/dL (0.2 mg/dL)
[2018-12-26 14:08] LABS: BACTERIA,URINE MODERATE /HPF (0-FEW); RBC,URINE RARE /HPF (0-2); SQUAMOUS EPITHELIAL CELL,UR MOD /LPF
[2018-12-26 14:11] LABS: CALCIUM 9.1 mg/dL (8.5-10.1); CREATININE 1.1 mg/dL (0.6-1.0); GFR 50.3; POTASSIUM 4.3 mmol/L (3.5-5.1)
--- NOTE | 2018-12-26 14:13 | RAD ---
Portable chest, 12/26/2018: HISTORY: Shortness of breath, dizziness Comparison is made to a study from 12/24/2018. The heart size is normal. No acute infiltrate is seen. A tiny dense nodule in the left upper lobe is probably a granuloma. There is no evidence of pleural fluid. Moderate spurring is present in the spine. IMPRESSION: No acute cardiopulmonary abnormality is detected. Electronically signed by: José Miguel Gamboa MD (12/26/2018 2:10 PM) [facility]
[2018-12-26] MEDS ORDERED: cefTRIAXone IV Push 1 GM VIAL. IVP STA (14:14)
[2018-12-26 14:17] LABS: ALBUMIN 3.6 g/dL (3.4-5.0); ALBUMIN/GLOBULIN RATIO 1.1 (1.0-1.7); TOTAL BILIRUBIN 0.2 mg/dL (0.2-1.0); TOTAL PROTEIN 6.8 g/dL (6.4-8.2)
[2018-12-26 14:27] LABS: % BANDS 2 % (0-9); % LYMPHS 4 % (24-48); % MONOS 2 % (0-10); % SEGS 92 % (35-66); PLT ESTIMATE ADEQUATE (ADEQUATE)
[2018-12-26] MEDS ORDERED: ACETAMINOPHEN 325 MG TABLET. PO PRN (15:15)
[2018-12-26] MEDS ORDERED: ONDANSETRON PF 4 MG/2 ML VIAL. IV PRN (15:15)
[2018-12-26] MEDS ORDERED: MORPHINE SULFATE 2 MG/ML VIAL. IV PRN (15:15)
[2018-12-26] MEDS ORDERED: CYCLOBENZAPRINE 10 MG TABLET. PO PRN (16:30)
[2018-12-26] MEDS: LISINOPRIL 5 MG TABLET. PO SCH (17:00)
[2018-12-26] MEDS: CITALOPRAM 20 MG TABLET. PO SCH (17:00)
--- NOTE | 2018-12-26 18:00 | NUR ---
Pt admitted to room 660. Received report from QUETA Groves in ED. All belongings left with patient at time of admission.
[2018-12-26 20:47] VITALS: BP 139/56
[2018-12-26] MEDS: clonazePAM 0.5 MG TABLET PO SCH (21:10)
[2018-12-26 23:51] VITALS: BP 148/80
[2018-12-27 03:15] VITALS: BP 137/78
[2018-12-27 07:30] VITALS: BP 157/76
[2018-12-27] MEDS: CITALOPRAM 20 MG TABLET. PO SCH (09:20)
[2018-12-27] MEDS: LISINOPRIL 5 MG TABLET. PO SCH (09:20)
[2018-12-27] MEDS: clonazePAM 0.5 MG TABLET PO SCH ×2 (09:20→21:37)
[2018-12-27] MEDS ORDERED: DEXTROSE 50% 25 GM / 50ML DISP.SYRIN. IV PRN (09:45)
[2018-12-27 10:35] VITALS: BP 152/80
[2018-12-27 10:50] LABS: CALCIUM 8.5 mg/dL (8.5-10.1); CREATININE 0.7 mg/dL (0.6-1.0); GFR 84.8; POTASSIUM 3.6 mmol/L (3.5-5.1)
[2018-12-27 11:09] LABS: BASO # 0.1 x10^3/uL (0.0-0.2); BASO % 1 % (0-3); EOS # 0.2 x10^3/uL (0.0-0.7); EOS % 2 % (0-3); HEMATOCRIT 39.5 % (36.0-47.0); HEMOGLOBIN 13.1 g/dL (12.0-15.5); LYMPH # 4.6 x10^3/uL (1.0-4.8); LYMPH % 31 % (24-48); MEAN CORPUSCULAR HEMOGLOBIN 31 pg (25-35); MEAN CORPUSCULAR HGB CONC 33 g/dL (31-37); MEAN CORPUSCULAR VOLUME 92 fL (79-100); MONO # 0.9 x10^3/uL (0.0-1.1); MONO % 6 % (0-9); NEUT # 8.9 x10^3uL (1.8-7.7); NEUT % 60 % (31-73); PLATELET COUNT 279 x10^3/uL (140-400); RED BLOOD COUNT 4.28 x10^6/uL (3.50-5.40); RED CELL DISTRIBUTION WIDTH 13.8 % (11.5-14.5); WHITE BLOOD COUNT 14.8 x10^3/uL (4.0-11.0)
[2018-12-27] MEDS: INSULIN LISPRO 300 UNITS/3 ML INSULN.PEN. SQ SCH ×2 (12:00→17:00)
--- NOTE | 2018-12-27 14:36 | PDOC1 ---
History and Physical Date of Admission Date of Admission 12/26/18 Identification/Chief Complaint Chief Complaint not feeling well Source Source: Chart review, Patient History of Present Illness History of Present Illness She was placed on high dose steroids last week by ENT and saw me in the office 12/22 due to feeling anxious. Her dose was decreased to 30 mg daily and her Phentermine was stopped, she presented to ER 12/24 and diagnosed with UTI and given Rocephin and sent home with antibiotics but presented yesterday and met sepsis criteria and admitted, better today. Urine cx from 12/24 contaminated with 10,000 mixed lacie. Lactic acid 2.2, WBC elevated (likely from steroids). She is now off steroids and on Rocephin with last dose nearly 24 hr ago. She remains anxious but no longer feels dehydrated. She denies chest pain, SOA, N/V, diarrhea, dysuria Past Medical History Cardiovascular: HTN, Hyperlipidemia Pulmonary: No pertinent hx GI: GERD Heme/Onc: No pertinent hx Hepatobiliary: No pertinent hx Psych: Anxiety, Depression Rheumatologic: No pertinent hx Infectious disease: No pertinent hx ENT: Sincusitis, Other (serous ototis) Dermatology: Other (heel grast) Past Surgical History Past Surgical History: , Tubal Ligation, Tonsillectomy Family History Family History: Hypertension Social History Smoke: No Drugs: None Current Problem List Problem List Problems Medical Problems: (1) Dizziness Status: Acute (2) Sepsis Status: Acute (3) Urinary tract infection Status: Acute Current Medications Current Medications Current Medications Medications (Trade) Dose Ordered Sig/Rommel Start Time Stop Time Status Last Admin Dose Admin Acetaminophen (Tylenol) 650 mg PRN Q4HRS PRN 12/26/18 15:15 12/27/18 15:14 Ceftriaxone Sodium (Rocephin) 1 gm 1X STAT 12/26/18 14:14 12/26/18 14:24 DC 12/26/18 14:31 1 GM Citalopram Hydrobromide (CeleXA) 40 mg DAILY 12/26/18 17:00 12/27/18 09:20 40 MG Clonazepam (KlonoPIN) 0.5 mg BID 12/26/18 21:00 12/27/18 09:20 0.5 MG Cyclobenzaprine HCl (Flexeril) 10 mg PRN TID PRN 12/26/18 16:30 12/26/18 21:10 10 MG Dextrose (Dextrose 50%-Water Syringe) 12.5 gm PRN Q15MIN PRN 12/27/18 09:45 Ibuprofen (Motrin) 600 mg 1X ONCE 12/26/18 13:30 12/26/18 13:36 DC 12/26/18 14:18 600 MG Insulin Human Lispro (HumaLOG) 0-5 UNITS TIDWMEALS 12/27/18 12:00 Lisinopril (Prinivil) 5 mg DAILY 12/26/18 17:00 12/27/18 09:20 5 MG Morphine Sulfate (Morphine Sulfate) 2 mg PRN Q2HR PRN 12/26/18 15:15 12/27/18 15:14 Ondansetron HCl (Zofran) 4 mg PRN Q8HRS PRN 12/26/18 15:15 12/27/18 15:14 Sodium Chloride 1,000 ml @ 1,000 mls/hr 1X ONCE 12/26/18 14:45 12/26/18 15:44 DC 12/26/18 17:09 1,000 MLS/HR Allergies Allergies Allergies Coded Allergies Type Severity Reaction Last Updated Verified No Known Drug Allergies 07/09/15 No ROS Review of System CONSTITUTIONAL: No fever or chills EYES: No recent changes SKIN: No rash or itching CARDIOVASCULAR: No chest pain, syncope, palpitations, or edema RESPIRATORY: + SOB, no cough GASTROINTESTINAL: No nausea, vomiting or abdominal pain NEUROLOGICAL: dizzy ENDOCRINE: No cold or heat intolerance GENITOURINARY: + frequency of urination MUSCULOSKELETAL: No back pain or joint pain LYMPHATICS: No enlarged lymph nodes PSYCHIATRIC: + anxiety, hx depression Physical Exam Physical Exam GEN.: No apparent distress. Alert and oriented. HEENT: Head is normocephalic, atraumatic, sinuses congested, hearing diminished NECK: Supple. LUNGS: Clear to auscultation. HEART: RRR, S1, S2 present. Peripheral pulses intact ABDOMEN: Soft, nontender. Positive bowel sounds. EXTREMITIES: Without any cyanosis. NEUROLOGIC: Normal speech, normal tone PSYCHIATRIC: Normal affect, normal mood. SKIN: No ulcerations, heel graft present Vitals Vitals Vital Signs Date Time Temp Pulse Resp B/P (MAP) Pulse Ox O2 Delivery O2 Flow Rate FiO2 12/27/18 10:35 98.4 69 18 152/80 (104) 93 Room Air 98.4 Labs Labs Laboratory Tests Test 12/26/18 13:38 12/26/18 17:50 12/27/18 10:15 12/27/18 11:39 White Blood Count 18.5 x10^3/uL (4.0-11.0) 14.8 x10^3/uL (4.0-11.0) Red Blood Count 4.24 x10^6/uL (3.50-5.40) 4.28 x10^6/uL (3.50-5.40) Hemoglobin 12.6 g/dL (12.0-15.5) 13.1 g/dL (12.0-15.5) Hematocrit 38.9 % (36.0-47.0) 39.5 % (36.0-47.0) Mean Corpuscular Volume 92 fL (79-100) 92 fL (79-100) Mean Corpuscular Hemoglobin 30 pg (25-35) 31 pg (25-35) Mean Corpuscular Hemoglobin Concent 32 g/dL (31-37) 33 g/dL (31-37) Red Cell Distribution Width 14.1 % (11.5-14.5) 13.8 % (11.5-14.5) Platelet Count 293 x10^3/uL (140-400) 279 x10^3/uL (140-400) Neutrophils (%) (Auto) 93 % (31-73) 60 % (31-73) Lymphocytes (%) (Auto) 6 % (24-48) 31 % (24-48) Monocytes (%) (Auto) 1 % (0-9) 6 % (0-9) Eosinophils (%) (Auto) 0 % (0-3) 2 % (0-3) Basophils (%) (Auto) 0 % (0-3) 1 % (0-3) Neutrophils # (Auto) 17.1 x10^3uL (1.8-7.7) 8.9 x10^3uL (1.8-7.7) Lymphocytes # (Auto) 1.1 x10^3/uL (1.0-4.8) 4.6 x10^3/uL (1.0-4.8) Monocytes # (Auto) 0.2 x10^3/uL (0.0-1.1) 0.9 x10^3/uL (0.0-1.1) Eosinophils # (Auto) 0.0 x10^3/uL (0.0-0.7) 0.2 x10^3/uL (0.0-0.7) Basophils # (Auto) 0.0 x10^3/uL (0.0-0.2) 0.1 x10^3/uL (0.0-0.2) Segmented Neutrophils % 92 % (35-66) Band Neutrophils % 2 % (0-9) Lymphocytes % 4 % (24-48) Monocytes % 2 % (0-10) Platelet Estimate Adequate (ADEQUATE) Urine Collection Type Unknown Urine Color Yellow Urine Clarity Clear Urine pH 6.0 Urine Specific [place] 1.020 Urine Protein Negative mg/dL (NEG-TRACE) Urine Glucose (UA) 250 mg/dL (NEG) Urine Ketones (Stick) Negative mg/dL (NEG) Urine Blood Negative (NEG) Urine Nitrite Negative (NEG) Urine Bilirubin Negative (NEG) Urine Urobilinogen Dipstick 0.2 mg/dL (0.2 mg/dL) Urine Leukocyte Esterase Moderate (NEG) Urine RBC Rare /HPF (0-2) Urine WBC 11-20 /HPF (0-4) Urine Squamous Epithelial Cells Mod /LPF Urine Bacteria Moderate /HPF (0-FEW) Sodium Level 139 mmol/L (136-145) 142 mmol/L (136-145) Potassium Level 4.3 mmol/L (3.5-5.1) 3.6 mmol/L (3.5-5.1) Chloride Level 103 mmol/L (98-107) 108 mmol/L (98-107) Carbon Dioxide Level 19 mmol/L (21-32) 23 mmol/L (21-32) Anion Gap 17 (6-14) 11 (6-14) Blood Urea Nitrogen 25 mg/dL (7-20) 16 mg/dL (7-20) Creatinine 1.1 mg/dL (0.6-1.0) 0.7 mg/dL (0.6-1.0) Estimated GFR (Cockcroft-Gault) 50.3 84.8 BUN/Creatinine Ratio 23 (6-20) Glucose Level 248 mg/dL (70-99) 142 mg/dL (70-99) Lactic Acid Level 3.0 mmol/L (0.4-2.0) 2.2 mmol/L (0.4-2.0) Calcium Level 9.1 mg/dL (8.5-10.1) 8.5 mg/dL (8.5-10.1) Total Bilirubin 0.2 mg/dL (0.2-1.0) Aspartate Amino Transf (AST/SGOT) 14 U/L (15-37) Alanine Aminotransferase (ALT/SGPT) 29 U/L (14-59) Alkaline Phosphatase 92 U/L (46-116) Troponin I Quantitative < 0.017 ng/mL (0.000-0.055) DO-Rdz-T-Type Natriuretic Peptide 16 pg/mL (0-124) Total Protein 6.8 g/dL (6.4-8.2) Albumin 3.6 g/dL (3.4-5.0) Albumin/Globulin Ratio 1.1 (1.0-1.7) Glucose (Fingerstick) 130 mg/dL (70-99) Laboratory Tests Test 12/26/18 17:50 12/27/18 10:15 12/27/18 11:39 Lactic Acid Level 2.2 mmol/L (0.4-2.0) White Blood Count 14.8 x10^3/uL (4.0-11.0) Red Blood Count 4.28 x10^6/uL (3.50-5.40) Hemoglobin 13.1 g/dL (12.0-15.5) Hematocrit 39.5 % (36.0-47.0) Mean Corpuscular Volume 92 fL (79-100) Mean Corpuscular Hemoglobin 31 pg (25-35) Mean Corpuscular Hemoglobin Concent 33 g/dL (31-37) Red Cell Distribution Width 13.8 % (11.5-14.5) Platelet Count 279 x10^3/uL (140-400) Neutrophils (%) (Auto) 60 % (31-73) Lymphocytes (%) (Auto) 31 % (24-48) Monocytes (%) (Auto) 6 % (0-9) Eosinophils (%) (Auto) 2 % (0-3) Basophils (%) (Auto) 1 % (0-3) Neutrophils # (Auto) 8.9 x10^3uL (1.8-7.7) Lymphocytes # (Auto) 4.6 x10^3/uL (1.0-4.8) Monocytes # (Auto) 0.9 x10^3/uL (0.0-1.1) Eosinophils # (Auto) 0.2 x10^3/uL (0.0-0.7) Basophils # (Auto) 0.1 x10^3/uL (0.0-0.2) Sodium Level 142 mmol/L (136-145) Potassium Level 3.6 mmol/L (3.5-5.1) Chloride Level 108 mmol/L (98-107) Carbon Dioxide Level 23 mmol/L (21-32) Anion Gap 11 (6-14) Blood Urea Nitrogen 16 mg/dL (7-20) Creatinine 0.7 mg/dL (0.6-1.0) Estimated GFR (Cockcroft-Gault) 84.8 Glucose Level 142 mg/dL (70-99) Calcium Level 8.5 mg/dL (8.5-10.1) Glucose (Fingerstick) 130 mg/dL (70-99) VTE Prophylaxis Ordered VTE Prophylaxis Devices: No VTE Pharmacological Prophylaxi: Yes Assessment/Plan Assessment/Plan sepsis - fluids given sinusitis - steroids stopped steroid induced hyperglycemia - SSI possible UTI - continue Rocephin, await cx obesity - phentermine stopped Aneesh FREEDMAN MD December 27, 2018 14:36
[2018-12-27 15:18] VITALS: BP 128/68
[2018-12-27] MEDS: ENOXAPARIN 40 MG/0.4 ML SYRINGE. SQ SCH (15:37)
[2018-12-27] MEDS: cefTRIAXone IV Push 1 GM VIAL. IVP SCH (15:38)
[2018-12-27] MEDS ORDERED: IBUPROFEN 400 MG TABLET. PO PRN (17:15)
[2018-12-27 19:00] VITALS: BP 132/73
[2018-12-27] MEDS: LACTOBACILLUS RHAMNOSUS GG 1 CAPSULE. PO SCH (21:37)
[2018-12-27 23:00] VITALS: BP 129/81
[2018-12-28 03:00] VITALS: BP 109/84
[2018-12-28] MEDS: ENOXAPARIN 40 MG/0.4 ML SYRINGE. SQ SCH ×2 (04:13→10:50)
[2018-12-28 05:58] LABS: BASO # 0.1 x10^3/uL (0.0-0.2); BASO % 1 % (0-3); EOS # 0.4 x10^3/uL (0.0-0.7); EOS % 3 % (0-3); HEMATOCRIT 40.9 % (36.0-47.0); HEMOGLOBIN 13.1 g/dL (12.0-15.5); LYMPH # 3.4 x10^3/uL (1.0-4.8); LYMPH % 27 % (24-48); MEAN CORPUSCULAR HEMOGLOBIN 30 pg (25-35); MEAN CORPUSCULAR HGB CONC 32 g/dL (31-37); MEAN CORPUSCULAR VOLUME 93 fL (79-100); MONO # 1.1 x10^3/uL (0.0-1.1); MONO % 9 % (0-9); NEUT # 7.7 x10^3uL (1.8-7.7); NEUT % 61 % (31-73); PLATELET COUNT 315 x10^3/uL (140-400); RED BLOOD COUNT 4.41 x10^6/uL (3.50-5.40); RED CELL DISTRIBUTION WIDTH 13.6 % (11.5-14.5); WHITE BLOOD COUNT 12.7 x10^3/uL (4.0-11.0)
[2018-12-28 06:04] LABS: CALCIUM 9.3 mg/dL (8.5-10.1); CREATININE 0.7 mg/dL (0.6-1.0); GFR 84.8; POTASSIUM 3.8 mmol/L (3.5-5.1)
[2018-12-28 07:00] VITALS: BP 150/87
[2018-12-28] MEDS: INSULIN LISPRO 300 UNITS/3 ML INSULN.PEN. SQ SCH ×2 (08:00→12:00)
[2018-12-28] MEDS: CITALOPRAM 20 MG TABLET. PO SCH (08:42)
[2018-12-28] MEDS: clonazePAM 0.5 MG TABLET PO SCH (08:43)
[2018-12-28] MEDS: LISINOPRIL 5 MG TABLET. PO SCH (08:43)
[2018-12-28] MEDS: LACTOBACILLUS RHAMNOSUS GG 1 CAPSULE. PO SCH (08:43)
[2018-12-28] MEDS ORDERED: FLUT9.9S NS (09:39)
[2018-12-28 11:00] VITALS: BP 139/82
[2018-12-28 11:22] LABS: HEMOGLOBIN A1C 6.2 % (4.8-5.6)
[2018-12-28 15:00] VITALS: BP 124/56
[2018-12-28] MEDS: cefTRIAXone IV Push 1 GM VIAL. IVP SCH (15:36)
--- NOTE | 2018-12-28 16:42 | NUR ---
Discharge Note: BETSY MATHTEWS Discharge instructions and discharge home medications reviewed with Patient and a copy given. All questions have been answered and understanding verbalized. The following instructions and handouts were given: UTI Discontinued lines and drains: Peripheral IV intact. Patient discharged to Home or Self Care with Spouse via Wheelchair
--- NOTE | 2018-12-31 19:40 | PDOC3 ---
Discharge Summary [facility] Date of Admission: December 26, 2018 Discharge Date: December 28, 2018 Admitting Diagnosis sepsis Final Diagnosis Sepsis CONSULTS none Procedures none Brief Hospital Course Ms. Dennis is a 63 old who presented with: likely sepsis - presumably from urinary source but urine cx from [facility] grew mixed normal lacie - fluids given and she improved sinusitis - recently started high dose steroids with taper stopped - could have been the reason for leukocytosis steroid induced hyperglycemia - teated inpatient with SSI, will discharge on metformin, A1C 6.2 possible UTI - given Rocephin, awaiting final C&S from second culture obtained at admission obesity - phentermine stopped [facility] due to side effects anxiety - clonazepam continued Disposition home CONDITION AT DISCHARGE: Improved, Stable Diet diabetic Scheduled Citalopram Hydrobromide (Citalopram Hbr), 40 MG PO DAILY, (Reported) Clonazepam (Clonazepam), 0.5 MG PO BID, (Reported) Fluticasone Propionate (Flonase Allergy Relief), 2 SPRAYS NS DAILY Lisinopril (Lisinopril), 5 MG PO DAILY, (Reported) Sulfamethoxazole/Trimethoprim (Bactrim Ds Tablet), 1 TAB PO BID Discontinued Medications Cyclobenzaprine Hcl (Cyclobenzaprine Hcl), 1 TAB PO TID Cyclobenzaprine Hcl (Cyclobenzaprine Hcl), 10 MG PO TID PRN for MUSCLE SPASMS Methylprednisolone (Medrol), 1 PKG PO UD [depression med], (Reported) Follow Up 1-2 weeks Aneesh FREEDMNA MD Dec 31, 2018 19:40
== END 2018-12-28 16:44 | disposition home or self-care (01) | DRG 872 ==
LOC: ER 13:01 → 6 SOUTH 14:16 → 5 NORTH 12-28 06:43
PROVIDERS: ADMIT Family Medicine; ATTEND Family Medicine
DX: A41.9 Sepsis, unspecified organism (principal); N39.0 Urinary tract infection, site not specified; E78.00 Pure hypercholesterolemia, unspecified; I10 Essential (primary) hypertension; F41.9 Anxiety disorder, unspecified; F32.9 Major depressive disorder, single episode, unspecified; K21.9 Gastro-esophageal reflux disease without esophagitis; T38.0X5A Adverse effect of glucocorticoids and synthetic analogues, initial encounter; J32.9 Chronic sinusitis, unspecified; E66.9 Obesity, unspecified; E78.5 Hyperlipidemia, unspecified; Z82.49 Family history of ischemic heart disease and other diseases of the circulatory system; Z98.51 Tubal ligation status
CPT/HCPCS: 36415; 70450; 71045; 80048; 80053; 81001; 82550; 82962; 83036; 83605; 83735; 83880; 84484; 85007; 85025; 87040; 87086; 93005; 96361; 96374; J0696; J1650; J1815; J7030; 99285-25

== ENCOUNTER → 2019-02-20 | Outpatient (CLI) | payer BC ==
[~2019-02-20] MED LIST changes: +FLUT9.9S NS
--- NOTE | 2019-02-23 15:11 | RAD ---
INDICATION: 63 year-old female presents for further evaluation of an abnormality on prior mammogram and ultrasound TECHNIQUE: Targeted high resolution sonography of the region of concern was performed. COMPARISON: 07/19/2018, 07/12/2017, 07/08/2016, 01/07/2016 ULTRASOUND FINDINGS: Targeted ultrasound of the previously described probably benign finding was again performed. 9:00 position, 4 cm from the nipple: An anechoic avascular mass of circumscribed margins and round/oval shape is present. It demonstrates posterior acoustic enhancement and a parallel orientation. It measures 1.2 x 0.9 x 1.4 cm. 9:00 position, 4 cm from the nipple: A near anechoic mass of circumscribed the slightly irregular margins and internal homogeneous low level echoes is present with parallel orientation and is of oval/round shape. There is no internal vascularity on Doppler interrogation. It demonstrates posterior acoustic enhancement and measures 0.7 x 0.4 x 0.6 cm. 9:30 position, 3 cm from the nipple: A 0.9 x 0.7 x 0.4 cm cystic structure with enhanced through transmission and well-circumscribed margins is seen with internal septation. IMPRESSION: Probably benign finding. RECOMMENDATION: Recommend 6 month ultrasound follow up and mammogram BI-RADS 3: Probably Benign Electronically signed by: Ariel Frank MD (02/23/2019 3:08 PM) [facility]
== END | disposition home or self-care (01) ==
LOC: US 08:45
PROVIDERS: ATTEND Family Medicine
DX: N63.22 Unspecified lump in the left breast, upper inner quadrant (principal)
CPT/HCPCS: 76641

== ENCOUNTER → 2019-08-08 | Outpatient (CLI) | payer BC ==
[~2019-08-08] MED LIST changes: +CLON-77 PO; -CLON0.5T11 PO
--- NOTE | 2019-08-08 15:56 | RAD ---
DATE: 08/08/2019 EXAM: MAMMO KYLER SHELBY, BREAST LEFT HISTORY: Abnormal mammogram and abnormal ultrasound examination COMPARISON: 07/19/2018, 07/12/2017, 07/08/2016 mammographic exams, left breast ultrasound examinations 07/19/2018 and 02/20/2019 This study was interpreted with the benefit of Computerized Aided Detection (CAD). Breast Density: HETERO The breast parenchyma is heterogenously dense, which could reduce sensitivity of mammography. Breast parenchyma level C. FINDINGS: No suspicious calcification, mass, or distortion in the interval. Benign-appearing calcific lesions are present. Ultrasound imaging of the left breast was performed. At the 9:00 region 4 cm from the nipple, there is a 0.74 cm in maximum diameter cyst which has decreased in size. There is a 0.48 cm complicated cyst also seen in this has slightly decreased in size since the prior exam. At the 9:30 region 3 cm from nipple, there is a 0.6 cm diameter cyst with internal echoes. This appears to have decreased since the prior exam. IMPRESSION: Complicated cysts again seen. These appear mostly decreased in size. BI-RADS CATEGORY: 3 PROBABLY BENIGN FINDING(S)-SHORT INTERVAL FOLLOW-UP SUGGESTED RECOMMENDED FOLLOW-UP: 12M 12 MONTH FOLLOW-UP. Follow-up ultrasound exam in one year to assess stability is recommended. PQRS compliance statement: Patient information was entered into a reminder system with a target due date for the next mammogram. Mammography is a sensitive method for finding small breast cancers, but it does not detect them all and is not a substitute for careful clinical examination. A negative mammogram does not negate a clinically suspicious finding and should not result in delay in biopsying a clinically suspicious abnormality. "Our facility is accredited by the [employer] Mammography Program."
== END | disposition home or self-care (01) ==
LOC: MAMMO 14:22
PROVIDERS: ATTEND Family Medicine
DX: Z09 Encounter for follow-up examination after completed treatment for conditions other than malignant neoplasm (principal); N60.02 Solitary cyst of left breast
CPT/HCPCS: 76641; 77066; G0279; 77062

== ENCOUNTER → 2020-03-24 | Outpatient (CLI) | payer BC ==
--- NOTE | 2020-03-27 12:07 | PATHOLOGY ---
[facility] Accession Number: [id number] . 01 Material submitted: . PART A: heel - SKIN LESION RIGHT HEEL #1. Modifiers: right, 1 PART B: heel - LESION RIGHT HEEL #2. Modifiers: right, 2 . 01 Clinical history: . BIOPSY SKIN LESION FOOT . 02 Diagnosis: A. Skin "right heel #1", excision: - Verruca vulgaris; negative for malignancy. . B. Skin "right heel #2", excision: - Verruca vulgaris; negative for malignancy. . (MLK:duane; 03/26/2020) S 03/27/2020 1116 Local . 02 Electronically signed: . Rosario Osborn MD, Pathologist NPI- [id number] . 01 Gross description: . A. The specimen is received in formalin, labeled "Joy Jeannie, A". No source is listed on the container. The source is listed on the requisition as, "right heel #1". Received is a tag-like segment of white-garcia, flaky skin measuring 0.4 x 0.3 x 0.3 cm in greatest dimensions. The specimen is submitted intact in cassette A1. . B. The specimen is received in formalin, labeled "Joy Jeannie, B". No source is listed on the container. The source is listed on the requisition as, "right heel #2". Received is a shave biopsy measuring 0.6 x 0.6 x 0.2 cm in greatest dimensions. The epidermal surface displays a well-circumscribed, raised, flaky and white-garcia lesion measuring 0.6 x 0.6 x 0.1 cm. The surgical margin is inked. The specimen is bisected and entirely submitted in cassette B1. (CAA; 03/25/2020) QAC/QAC 03/26/2020 1503 Local . 02 Pathologist provided ICD-10: B07.8 . 02 CPT . 748491, 128684 Specimen Comment: A courtesy copy of this report has been sent to [phone], [phone] Specimen Comment: [id number] Specimen Comment: Report sent to / DR FREEDMAN Performed at: 01 [facility] [address], [place] [id number] MD Omar Collins MD Phone: [phone] Performed at: 02 [facility] [address], [place] [id number] MD Ben Garcia MD Phone: [phone]
== END | disposition home or self-care (01) ==
LOC: SPEC 16:54
PROVIDERS: ATTEND Podiatrist
DX: M25.871 Other specified joint disorders, right ankle and foot (principal)
CPT/HCPCS: 88305

== ENCOUNTER → 2020-08-09 | Outpatient (CLI) | payer BC ==
--- NOTE | 2020-08-11 15:21 | RAD ---
DATE: 08/09/2020 8:53 AM EXAM: MAMMO KYLER SCREENING BILATERAL HISTORY: Screening COMPARISON: 08/08/2019 Bilateral CC and MLO views of the breasts were performed. Bilateral breast tomosynthesis was performed in CC and MLO projections. This study was interpreted with the benefit of Computerized Aided Detection (CAD). FINDINGS: Breast Density: HETERO The breast parenchyma Is heterogeneously dense, which could reduce sensitivity of mammography. Breast parenchyma level C No suspicious masses, microcalcifications or architectural distortion is present to suggest malignancy in either breast. The visualized axillae are unremarkable. IMPRESSION: No mammographic evidence of malignancy. BI-RADS CATEGORY: 1 NEGATIVE RECOMMENDED FOLLOW-UP: 12M 12 MONTH FOLLOW-UP Annual screening mammography is recommended, unless clinically indicated sooner based on symptoms or change in physical exam. PQRS compliance statement: Patient information was entered into a reminder system with a target due date for the next mammogram. Mammography is a sensitive method for finding small breast cancers, but it does not detect them all and is not a substitute for careful clinical examination. A negative mammogram does not negate a clinically suspicious finding and should not result in delay in biopsying a clinically suspicious abnormality. "Our facility is accredited by the [employer] Mammography Program."
== END ==
LOC: MAMMO 08:49
PROVIDERS: ATTEND Family Medicine
DX: Z12.31 Encounter for screening mammogram for malignant neoplasm of breast (principal); N64.89 Other specified disorders of breast
CPT/HCPCS: 77063; 77067

== ENCOUNTER → 2021-08-18 | Outpatient (CLI) | payer MEDICARE, BC ==
[~2021-08-18] MED LIST changes: -CITA40TA5 PO; +CITA40TA6 PO; +CYCL10TA19 PO; -CYCL10TA2 PO; -LISI-338 PO; +LISI5TAB15 PO
--- NOTE | 2021-08-18 15:26 | RAD ---
Bilateral digital screening 2-D and 3-D (tomosynthesis) mammogram: Reason for examination: Routine screening. Comparison is made to previous mammograms from 08/09/2020 and 08/08/2019. Left breast ultrasound from 08/08. Bilateral mammograms in CC and oblique projections were obtained with 2-D imaging and 3-D tomosynthes is imaging and reviewed on the workstation. Interpretation was made with the benefit of CAD. Findings: Breast density: Category C. The breasts are heterogeneously dense, which may obscure small masses. There are no suspicious masses, malignant appearing calcifications or architectural distortion. There is a oval described mass in the 9:00 position of the left breast about 4 cm from the nipple which li joel corresponds to one of the cysts seen on previous ultrasound. There is some nodularity breast tis shannan inferior left breast which is not definitely changed. Impression: No evidence of malignancy. ASSESSMENT: BI-RADS 2. Benign findings. Recommendations: Routine screening mammograms. This patient's information has been entered into a reminder system for the patient to be notified wit h the results of her examination and a target date for the next mammogram. Your patient's mammogram demonstrates that she has dense breast tissue (breast density category C or D), which could hide abnormalities, and if she has other risk factors for breast cancer that have bee n identified, she might benefit from supplemental screening tests that may be suggested by you as her ordering physician. Dense breast tissue, in and of itself, is a relatively common condition. Therefo re, this information is not provided to cause undue concern, but rather to raise your awareness and t o promote discussion with your patient regarding the presence of other risk factors, in addition to d ense breast tissue. Electronically signed by: Lisa Dial MD (08/18/2021 3:24 PM) [id number]
== END ==
LOC: MAMMO 10:23
PROVIDERS: ATTEND Family Medicine
DX: Z12.31 Encounter for screening mammogram for malignant neoplasm of breast (principal)
CPT/HCPCS: 77063; 77067